=== PATIENT | male | born 1955 | race Caucasian/White ===

== ENCOUNTER 2020-03-27 11:04 | Outpatient (CLI) | payer BC, SELFPAY ==
--- NOTE | ~2020-03-27 | XR_ITS ---
XR chest 2V DATE: 03/27/2020 11:39 INDICATION: Shortness of breath TECHNIQUE: PA and lateral views COMPARISON: 02/08/2010 portable AP chest at 0645 hours FINDINGS: Left-sided pacemaker device with leads overlying right atrium, coronary sinus and right nan tricle. Normal heart size. No hilar or mediastinal enlargement. No pulmonary infiltrate or consolidation, pleural effusion or pulmonary vascular congestion or pneumo thorax is detected. Degenerative spurring of the thoracic spine. Left acromioclavicular separation, new since 02/08/2010. IMPRESSION: No active cardiopulmonary disease Triple lead left pacemaker device Reviewed, dictated and finalized at location A.
== END 2020-03-27 11:05 | disposition home or self-care (01) ==
PROVIDERS: PCP Nurse Practitioner Family; Visit Provider Internal Medicine Cardiovascular Disease
DX: R06.02 Shortness of breath (principal); Z95.0 Presence of cardiac pacemaker
CPT/HCPCS: 71046